=== PATIENT | male | born 1940 | race Caucasian/White ===

== ENCOUNTER → 2023-04-12 07:47 | Outpatient (REF) | payer MEDICARE, SELFPAY ==
[2023-04-12 09:31] LABS: ALT (SGPT) 20 U/L (0-50); AST (SGOT) 23 U/L (17-59); Albumin 4.5 g/dl (3.5-5.0); Alkaline Phosphatase 68 U/L (38-126); Blood Urea Nitrogen 19 mg/dl (9-20); Calcium 9.5 mg/dl (8.4-10.2); Carbon Dioxide 25 mmol/L (22-30); Chloride 104 mmol/L (98-107); Glucose 168 mg/dl (70-99); HDL Cholesterol 61 mg/dl; Potassium 4.3 mmol/L (3.5-5.1); Sodium 136 mmol/L (135-145); Total Bilirubin 0.8 mg/dl (0.2-1.3); Total Cholesterol 151 mg/dl (50-199); Total Protein 7.5 g/dl (6.3-8.2); eGFR > 60.00
[2023-04-12 09:38] LABS: Free T4 0.94 ng/dl (0.78-2.19)
[2023-04-12 09:41] LABS: LDL Cholesterol, Calculated 49 mg/dl; Triglyceride 205 mg/dl (10-149); Very Low Density Lipoprotein 41 mg/dl (0-30)
[2023-04-12 09:47] LABS: Free T3 3.28 pg/ml (2.77-5.27)
[2023-04-12 09:52] LABS: TSH 3.08 uIU/ml (0.47-4.68)
[2023-04-12 09:53] LABS: Microalbumin, Random Urine < 0.6 mg/dl (0.6-1.7)
[2023-04-12 13:35] LABS: Glycohemoglobin (HgbA1c) 7.5 % (4.0-5.6)
[2023-04-14 00:17] LABS: Thyroid Peroxidase Ab (TPO) 1.1 IU/mL (0.0-9.0)
[2023-04-14 17:04] LABS: Total T3 (Sendout) 78 ng/dL (80-200)
== END ==
LOC: REG 07:47
PROVIDERS: ATTENDING PHYSICIAN Internal Medicine Endocrinology, Diabetes & Metabolism
DX: E03.9 Hypothyroidism, unspecified (principal); R80.9 Proteinuria, unspecified; E11.65 Type 2 diabetes mellitus with hyperglycemia; E78.5 Hyperlipidemia, unspecified; R53.83 Other fatigue
CPT/HCPCS: 36415; 80053; 80061; 82043; 82570; 83036; 84439; 84443; 84480; 84481; 86376

== ENCOUNTER → 2023-05-25 13:53 | Outpatient (REF) | payer MEDICARE, SELFPAY ==
[2023-05-25 15:50] LABS: Blood Urea Nitrogen 12 mg/dl (9-20); Calcium 9.6 mg/dl (8.4-10.2); Carbon Dioxide 25 mmol/L (22-30); Chloride 102 mmol/L (98-107); Glucose 223 mg/dl (70-99); Potassium 3.9 mmol/L (3.5-5.1); Sodium 137 mmol/L (135-145); eGFR > 60.00
== END ==
LOC: REG 13:53
PROVIDERS: ATTENDING PHYSICIAN Internal Medicine Hematology & Oncology
DX: I82.503 Chronic embolism and thrombosis of unspecified deep veins of lower extremity, bilateral (principal); I26.99 Other pulmonary embolism without acute cor pulmonale
CPT/HCPCS: 36415; 80048

== ENCOUNTER → 2023-06-18 07:43 | Outpatient (REF) | payer MEDICARE, SELFPAY ==
[2023-06-18 08:56] LABS: % Basophils 0.7 % (0-2); % Eosinophils 5.3 % (0-6); % Immature Granulocytes 0.2 % (0-0.5); % Lymphocytes 22.8 % (20.5-51.1); % Monocytes 10.3 % (1.7-9.3); % Neutrophils 60.7 % (42.2-75.2); Absolute Eosinophils 0.3 10^3/uL (0-0.7); Absolute Lymphocytes 1.3 10^3/uL (1.2-3.4); Absolute Monocytes 0.6 10^3/uL (0.1-0.6); Absolute Neutrophils 3.4 10^3/uL (1.4-6.5); Hematocrit 39.8 % (39.0-52.0); Hemoglobin 13.3 g/dL (13.0-18.0); Mean Corp Hgb Conc. 33.4 g/dL (33.0-37.0); Mean Corpuscular Hgb 29.9 pg (27.0-31.0); Mean Corpuscular Volume 89.4 fL (80.0-94.0); Mean Platelet Volume 10.3 fL (7.4-10.4); Nucleated Red Blood Cells % 0 % (-); Platelet Count 187 10^3/uL (130-400); Red Blood Cell Count 4.45 10^6/uL (4.70-6.10); Red Cell Dist. Width 13.3 % (11.5-14.5); White Blood Cell Count 5.6 10^3/uL (4.8-10.8)
[2023-06-18 09:42] LABS: D-Dimer 0.44 ug/mlFEU (0.00-0.50)
[2023-06-18 09:59] LABS: Iron 107 ug/dl (49-181)
[2023-06-18 10:10] LABS: Percent Saturation 26 % (20-50); Total Iron Binding Capacity 403 ug/dl (261-462)
[2023-06-18 10:27] LABS: Ferritin 45.9 ng/ml (17.9-464.0)
== END ==
LOC: REG 07:43
PROVIDERS: ATTENDING PHYSICIAN Internal Medicine Hematology & Oncology; FAMILY PHYSICIAN Family Medicine
DX: I82.503 Chronic embolism and thrombosis of unspecified deep veins of lower extremity, bilateral (principal); I26.99 Other pulmonary embolism without acute cor pulmonale; D50.9 Iron deficiency anemia, unspecified
CPT/HCPCS: 36415; 82728; 83540; 83550; 85025; 85379

== ENCOUNTER → 2023-07-10 07:57 | Outpatient (REF) | payer MEDICARE, SELFPAY ==
[2023-07-10 08:44] LABS: Glycohemoglobin (HgbA1c) 8.7 % (4.0-5.6)
[2023-07-10 08:59] LABS: ALT (SGPT) 19 U/L (0-50); AST (SGOT) 21 U/L (17-59); Albumin 4.7 g/dl (3.5-5.0); Alkaline Phosphatase 71 U/L (38-126); Blood Urea Nitrogen 15 mg/dl (9-20); Calcium 9.7 mg/dl (8.4-10.2); Carbon Dioxide 26 mmol/L (22-30); Chloride 103 mmol/L (98-107); Glucose 190 mg/dl (70-99); HDL Cholesterol 62 mg/dl; LDL Cholesterol, Calculated 39 mg/dl; Potassium 4.3 mmol/L (3.5-5.1); Sodium 137 mmol/L (135-145); Total Bilirubin 1.1 mg/dl (0.2-1.3); Total Cholesterol 143 mg/dl (50-199); Total Protein 7.8 g/dl (6.3-8.2); Triglyceride 212 mg/dl (10-149); Very Low Density Lipoprotein 42 mg/dl (0-30); eGFR > 60.00
[2023-07-10 09:01] LABS: Microalbumin, Random Urine 0.9 mg/dl (0.6-1.7)
[2023-07-10 09:17] LABS: Free T3 2.86 pg/ml (2.77-5.27); Free T4 1.03 ng/dl (0.78-2.19)
[2023-07-10 09:31] LABS: TSH 3.05 uIU/ml (0.47-4.68)
== END ==
LOC: REG 07:57
PROVIDERS: ATTENDING PHYSICIAN Internal Medicine Endocrinology, Diabetes & Metabolism
DX: E78.5 Hyperlipidemia, unspecified (principal); R53.83 Other fatigue; E11.65 Type 2 diabetes mellitus with hyperglycemia; R80.9 Proteinuria, unspecified; E03.9 Hypothyroidism, unspecified
CPT/HCPCS: 36415; 80053; 80061; 82043; 82570; 83036; 84439; 84443; 84481

== ENCOUNTER 2023-10-03 06:17 | Emergency (ER) | payer MEDICARE, SELFPAY ==
[2023-10-03 06:19] VITALS: BP 173/110
--- NOTE | 2023-10-03 07:30 | ED.GENMED ---
History of Present Illness
General
Chief Complaint: Bowel Problem
Source: patient
Time Seen by Provider: 10/03/23 07:09
History of Present Illness
History of Present Illness:
83-year-old male presents emergency department with constipation. Patient states he has not had a bowel movement in 4 days and he typically goes at least once a day. He has been taking MiraLAX at home and straining and got concerned tonight/this
morning when he noted blood, very small amount. He denies further bleeding. He denies history of hemorrhoids. He notes mild abdominal distention, but denies nausea, vomiting, fever, chills, chest pain, dyspnea, abdominal pain, or other complaints.
Past History
Past History
ED Past Medical History: CAD, HTN, Hypercholesterolemia and NIDDM
ED Past Surgical History: Cardiac, Orthopedic and Urological
Social History
Tobacco: Non-smoker
Alcohol: None
Drug: None
Personal:
Living: alone
Phy Exam
Physical Exam
Physical Exam:
GENERAL: Alert , in no apparent distress, very pleasant
EYE: pupils equal and reactive
NECK: Supple, no significant adenopathy.
ENT: o/p clr, mmm.
CARDIAC: Regular rate and rhythm .
LUNGS: Clear breath sounds bilaterally, no acute respiratory distress, no wheezes/rales/rhonchi
ABDOMEN: Soft, without focal tenderness, no r/g, no cvat
NEUROLOGICAL: Alert and oriented, no focal neuro deficits
SKIN: Warm and dry, skin intact.
MUSCULOSKELETAL: No edema, well perfused.
PSYCH: Normal and appropriate interaction.
Rectal no external hemorrhoids noted, no bleeding, no stool noted in vault, Carrie PCT present
Course
Orders/Labs/Results
Orders:
Orders
10/03/23 07:56
Phosphate Enema [Fleet Phosphate Enema-Adult] 135 ml RECTAL NOW STA
Vital Signs
Initial and Last Documented VS:
Initial Vital Signs
Pulse Resp BP Pulse Ox
77 18 173/110 97
10/03/23 06:19 10/03/23 06:19 10/03/23 06:19 10/03/23 06:19
Last Documented Vital Signs
Pulse Resp BP Pulse Ox
53 20 174/82 99
10/03/23 08:12 10/03/23 08:12 10/03/23 08:12 10/03/23 08:12
*Critical Care Note
Total Time (30-74mins, 75-104mins- exclusive of procedures): Not Applicable
Update Note
Update Note:
Patient presents to the Emergency Department with constipation____
Number and Complexity of Problems Addressed at the Encounter
� Chronic conditions affecting care:
� Acute Exacerbation and/or Progression of Chronic Illness:
� Differential Diagnosis includes:but not limited to functional constipation, obstruction, etc.
Amount and/or Complexity of Data to be Reviewed and Analyzed
� I performed an independent evaluation of and my interpretation is:
EKG:
CT:
Xrays:
Laboratory Studies:
Other:
� Review of other/old records reveals:
� Clinical information was obtained by an independent historian:
� Prescriptions/Medications Considered but not given:
� Further testing considered but not performed:
Risk of Complications and/or Morbidity or Mortality of Patient Management
� Social determinants of health affecting care:
� Discussion with other providers (PCP, Hospitalists, Consultants, etc):
� Escalation of care including admission/observation vs risk of discharge considered: 9:34 AM status post enema patient had a bowel movement here. He is very pleased that he is starting to pass stool. Denies new symptoms. No
abdominal pain, nausea, vomiting and abdomen remains soft and nontender. Discussed with patient importance of follow-up and reasons to return to the ER. If he continues to have constipation I did offer him recommendations for alternative by mouth
agents to be used with caution.
ED Attending Note
-
Portions of this chart may have been created with voice recognition software.� Occasional wrong word or��sound alike� substitutions may have occurred due to the inherent limitations of voice recognition software.
Discharge Plan
Departure
Patient Disposition: Home (Routine Discharge)
Date of Disposition: 10/03/23
Time of Disposition: :
Patient with high blood pressure during this ER visit?: Yes
Condition: Good
Discharge Problem:
Constipation
Instructions: Constipation, Adult (DC), BLOOD PRESSURE
Prescriptions:
No Action
aspirin 81 MG tablet,delayed release (DR/EC)
81 mg PO HS
spironolactone 25 MG tablet
12.5 mg PO DAILY
simvastatin 40 MG tablet
40 mg PO HS
cyanocobalamin (vitamin B-12) 1,000 MCG tablet
500 mcg PO DAILY
levothyroxine [Levoxyl] 50 MCG tablet
50 mcg PO DAILY
cholecalciferol (vitamin D3) [Vitamin D3] 25 mcg (1,000 unit) Tablet
25 mcg PO DAILY
Januvia 100 mg tablet
100 mg PO DAILY
metformin 500 MG tablet
1,000 mg PO BID
Rx Instructions:
HOLD post op- OK to resume on 02/20 in AM
prednisolone acetate 1 % Drops,Suspension
1 drp BOTH EYES .TAPER
Patient Comments:
12/21/2022: Pt does not know what eye drops he is supposed to be taking after Cataract surgery. Pt went to Dr Irving. Tried to called Dr Irving's office, office hours are [place]Fr [phone] and Tu [phone]
Rx Instructions:
Per manager organizational dr: TID x 1 week, BID x 1 week. Unknown schedule given at surgery
diclofenac sodium 0.1 % Drops
1 drp BOTH EYES BID
Rx Instructions:
x 2 weeks
oxycodone 5 mg tablet
5 mg PO TID PRN (Reason: Pain) Qty: 10 0RF
Referrals:
Sigifredo Her MD [Family Provider] -
Torrie Castaneda, DO [Active] - Next open appointment
Activity Restrictions/Additional Instructions:
IF YOU STILL FEEL CONSTIPATED LATER TODAY, YOU MAY CONSIDER TAKING MAGNESIUM CITRATE (SOLD OVER THE COUNTER). TAKE NO MORE THAN 150 ML (1/2 OF A BOTTLE) WITH 8 OUNCES OF WATER. YOU CAN EXPECT A BOWEL MOVEMENT IN 6-12 HOURS AFTER TAKING. IF YOU
DEVELOP BLEEDING, FEVER, VOMITING, ABDOMINAL PAIN, OR OTHER WORRISOME SIGNS, GO TO THE ER IMMEDIATELY!
Interventions
Interventions:
*Risk Screen - Suicide Last Done: 10/03/23 08:05
*General Assessment Last Done: 10/03/23 08:05
*Neglect/Abuse Screening Last Done: 10/03/23 08:05
*ED COVID-19 Vaccine History Last Done: 10/03/23 08:05
Discharge Date and Time
Print Language: GREEK
[2023-10-03 08:12] VITALS: BP 174/82
[2023-10-03] MEDS: FLEET PHOSPHATE ENEMA-ADULT 135 ML RECTAL (08:30)
== END 2023-10-03 09:40 | disposition home or self-care (01) ==
LOC: EMR 06:17
PROVIDERS: EMERGENCY PHYSICIAN Emergency Medicine; FAMILY PHYSICIAN Family Medicine
DX: K59.00 Constipation, unspecified (principal); I10 Essential (primary) hypertension
CPT/HCPCS: 99283

== ENCOUNTER → 2023-10-04 12:00 | Outpatient (REF) | payer MEDICARE, SELFPAY ==
[2023-10-04 13:48] LABS: ALT (SGPT) 16 U/L (0-50); AST (SGOT) 22 U/L (17-59); Albumin 4.5 g/dl (3.5-5.0); Alkaline Phosphatase 68 U/L (38-126); Blood Urea Nitrogen 9 mg/dl (9-20); Calcium 9.8 mg/dl (8.4-10.2); Carbon Dioxide 24 mmol/L (22-30); Chloride 101 mmol/L (98-107); Glucose 280 mg/dl (70-99); HDL Cholesterol 55 mg/dl; LDL Cholesterol, Calculated 41 mg/dl; Potassium 4.4 mmol/L (3.5-5.1); Sodium 135 mmol/L (135-145); Total Bilirubin 0.7 mg/dl (0.2-1.3); Total Cholesterol 132 mg/dl (50-199); Total Protein 7.2 g/dl (6.3-8.2); Triglyceride 184 mg/dl (10-149); Very Low Density Lipoprotein 36 mg/dl (0-30); eGFR > 60.00
[2023-10-04 13:55] LABS: Microalbumin, Random Urine < 0.6 mg/dl (0.6-1.7)
[2023-10-04 14:02] LABS: Free T4 1.19 ng/dl (0.78-2.19); Vitamin D, 25-OH*** 39.8 ng/mL (30-80)
[2023-10-04 14:15] LABS: TSH 1.99 uIU/ml (0.47-4.68)
== END ==
LOC: REG 12:00
PROVIDERS: ATTENDING PHYSICIAN Internal Medicine Endocrinology, Diabetes & Metabolism; FAMILY PHYSICIAN Family Medicine
DX: E78.5 Hyperlipidemia, unspecified (principal); R53.83 Other fatigue; E11.65 Type 2 diabetes mellitus with hyperglycemia; R80.9 Proteinuria, unspecified; E55.9 Vitamin D deficiency, unspecified; E03.9 Hypothyroidism, unspecified
CPT/HCPCS: 36415; 80053; 80061; 82043; 82306; 82570; 83036; 84439; 84443; 84481

== ENCOUNTER → 2023-11-13 07:25 | Outpatient (REF) | payer MEDICARE, SELFPAY ==
[2023-11-13 08:17] LABS: % Basophils 0.7 % (0-2); % Eosinophils 4.7 % (0-6); % Immature Granulocytes 0.2 % (0-0.5); % Lymphocytes 24.5 % (20.5-51.1); % Monocytes 12.2 % (1.7-9.3); % Neutrophils 57.7 % (42.2-75.2); Absolute Eosinophils 0.3 10^3/uL (0-0.7); Absolute Lymphocytes 1.4 10^3/uL (1.2-3.4); Absolute Monocytes 0.7 10^3/uL (0.1-0.6); Absolute Neutrophils 3.2 10^3/uL (1.4-6.5); Hematocrit 37.4 % (39.0-52.0); Hemoglobin 13.6 g/dL (13.0-18.0); Mean Corp Hgb Conc. 36.4 g/dL (33.0-37.0); Mean Corpuscular Hgb 32.6 pg (27.0-31.0); Mean Corpuscular Volume 89.7 fL (80.0-94.0); Mean Platelet Volume 10.1 fL (7.4-10.4); Nucleated Red Blood Cells % 0 % (-); Platelet Count 168 10^3/uL (130-400); Red Blood Cell Count 4.17 10^6/uL (4.70-6.10); Red Cell Dist. Width 12.5 % (11.5-14.5); White Blood Cell Count 5.6 10^3/uL (4.8-10.8)
[2023-11-13 09:04] LABS: CEA 5.43 ng/ml
== END ==
LOC: REG 07:25
PROVIDERS: ATTENDING PHYSICIAN Internal Medicine Hematology & Oncology; FAMILY PHYSICIAN Family Medicine
DX: I82.503 Chronic embolism and thrombosis of unspecified deep veins of lower extremity, bilateral (principal); I26.99 Other pulmonary embolism without acute cor pulmonale; K76.89 Other specified diseases of liver
CPT/HCPCS: 36415; 82378; 85025

== ENCOUNTER → 2024-01-07 07:44 | Outpatient (REF) | payer MEDICARE, SELFPAY ==
[2024-01-07 09:22] LABS: ALT (SGPT) 17 U/L (0-50); AST (SGOT) 20 U/L (17-59); Albumin 4.4 g/dl (3.5-5.0); Alkaline Phosphatase 74 U/L (38-126); Blood Urea Nitrogen 16 mg/dl (9-20); Calcium 9.7 mg/dl (8.4-10.2); Carbon Dioxide 25 mmol/L (22-30); Chloride 101 mmol/L (98-107); Glucose 244 mg/dl (70-99); HDL Cholesterol 55 mg/dl; LDL Cholesterol, Calculated 40 mg/dl; Potassium 5.3 mmol/L (3.5-5.1); Sodium 140 mmol/L (135-145); Total Bilirubin 0.8 mg/dl (0.2-1.3); Total Cholesterol 125 mg/dl (50-199); Total Protein 7.3 g/dl (6.3-8.2); Triglyceride 154 mg/dl (10-149); Very Low Density Lipoprotein 30 mg/dl (0-30); eGFR > 60.00
[2024-01-07 09:31] LABS: Glycohemoglobin (HgbA1c) 9.3 % (4.0-5.6)
[2024-01-07 09:37] LABS: Free T3 3.13 pg/ml (2.77-5.27); Vitamin D, 25-OH*** 51.9 ng/mL (30-80)
[2024-01-07 09:42] LABS: Microalbumin, Random Urine 2.5 mg/dl (0.6-1.7); Microalbumin/creatinine Ratio 17.1 mg/g
[2024-01-07 09:50] LABS: TSH 2.26 uIU/ml (0.47-4.68)
[2024-01-08 15:49] LABS: Thyroid Peroxidase Ab (TPO) 1.2 IU/mL (0.0-9.0)
[2024-01-09 02:47] LABS: C-Peptide 1.9 ng/mL (0.5-3.3)
== END ==
LOC: REG 07:44
PROVIDERS: ATTENDING PHYSICIAN Internal Medicine Endocrinology, Diabetes & Metabolism; FAMILY PHYSICIAN Family Medicine
DX: E55.9 Vitamin D deficiency, unspecified (principal); E03.9 Hypothyroidism, unspecified; R80.9 Proteinuria, unspecified; E11.65 Type 2 diabetes mellitus with hyperglycemia; E78.5 Hyperlipidemia, unspecified; R53.83 Other fatigue
CPT/HCPCS: 36415; 80053; 80061; 82043; 82306; 82570; 83036; 84439; 84443; 84481; 84681; 86376

== ENCOUNTER → 2024-02-06 08:10 | Outpatient (REF) | payer MEDICARE, SELFPAY ==
[2024-02-06 11:31] LABS: ALT (SGPT) 17 U/L (0-50); AST (SGOT) 22 U/L (17-59); Albumin 4.8 g/dl (3.5-5.0); Alkaline Phosphatase 54 U/L (38-126); Blood Urea Nitrogen 18 mg/dl (9-20); Calcium 9.6 mg/dl (8.4-10.2); Carbon Dioxide 27 mmol/L (22-30); Chloride 102 mmol/L (98-107); Glucose 184 mg/dl (70-99); HDL Cholesterol 65 mg/dl; LDL Cholesterol, Calculated 46 mg/dl; Potassium 4.4 mmol/L (3.5-5.1); Sodium 143 mmol/L (135-145); Total Bilirubin 0.8 mg/dl (0.2-1.3); Total Cholesterol 148 mg/dl (50-199); Total Protein 7.8 g/dl (6.3-8.2); Triglyceride 189 mg/dl (10-149); Very Low Density Lipoprotein 37 mg/dl (0-30); eGFR > 60.00
[2024-02-06 11:47] LABS: Free T3 2.95 pg/ml (2.77-5.27); Free T4 0.92 ng/dl (0.78-2.19)
[2024-02-06 11:48] LABS: Microalbumin, Random Urine 0.6 mg/dl (0.6-1.7); Microalbumin/creatinine Ratio 5.7 mg/g
[2024-02-06 11:56] LABS: Glycohemoglobin (HgbA1c) 8.8 % (4.0-5.6)
[2024-02-06 12:01] LABS: TSH 2.41 uIU/ml (0.47-4.68)
== END ==
LOC: REG 08:10
PROVIDERS: ATTENDING PHYSICIAN Internal Medicine Endocrinology, Diabetes & Metabolism
DX: E03.9 Hypothyroidism, unspecified (principal); R80.9 Proteinuria, unspecified; E11.65 Type 2 diabetes mellitus with hyperglycemia; E78.5 Hyperlipidemia, unspecified; K74.01 Hepatic fibrosis, early fibrosis; R53.83 Other fatigue
CPT/HCPCS: 36415; 80053; 80061; 82043; 82570; 83036; 84439; 84443; 84481

== ENCOUNTER → 2024-03-18 07:12 | Outpatient (REF) | payer MEDICARE, SELFPAY ==
[2024-03-18 08:11] LABS: % Basophils 0.8 % (0-2); % Eosinophils 5.4 % (0-6); % Immature Granulocytes 0.3 % (0-0.5); % Lymphocytes 24.1 % (20.5-51.1); % Monocytes 10.9 % (1.7-9.3); % Neutrophils 58.5 % (42.2-75.2); Absolute Basophils 0.1 10^3/uL (0-0.2); Absolute Eosinophils 0.3 10^3/uL (0-0.7); Absolute Lymphocytes 1.5 10^3/uL (1.2-3.4); Absolute Monocytes 0.7 10^3/uL (0.1-0.6); Absolute Neutrophils 3.6 10^3/uL (1.4-6.5); Hematocrit 38.1 % (39.0-52.0); Hemoglobin 13.3 g/dL (13.0-18.0); Mean Corp Hgb Conc. 34.9 g/dL (33.0-37.0); Mean Corpuscular Hgb 31.7 pg (27.0-31.0); Mean Corpuscular Volume 90.7 fL (80.0-94.0); Mean Platelet Volume 10.1 fL (7.4-10.4); Nucleated Red Blood Cells % 0 % (-); Platelet Count 171 10^3/uL (130-400); Red Cell Dist. Width 12.3 % (11.5-14.5); White Blood Cell Count 6.1 10^3/uL (4.8-10.8)
== END ==
LOC: REG 07:12
PROVIDERS: ATTENDING PHYSICIAN Nurse Practitioner Primary Care
DX: I82.503 Chronic embolism and thrombosis of unspecified deep veins of lower extremity, bilateral (principal); I26.99 Other pulmonary embolism without acute cor pulmonale; K76.89 Other specified diseases of liver
CPT/HCPCS: 36415; 85025

== ENCOUNTER → 2024-05-06 07:36 | Outpatient (REF) | payer MEDICARE, SELFPAY ==
[2024-05-06 08:59] LABS: ALT (SGPT) 16 U/L (0-50); AST (SGOT) 20 U/L (17-59); Albumin 4.7 g/dl (3.5-5.0); Alkaline Phosphatase 65 U/L (38-126); Blood Urea Nitrogen 19 mg/dl (9-20); Calcium 10.2 mg/dl (8.4-10.2); Carbon Dioxide 24 mmol/L (22-30); Chloride 104 mmol/L (98-107); Glucose 180 mg/dl (70-99); HDL Cholesterol 64 mg/dl; LDL Cholesterol, Calculated 60 mg/dl; Potassium 4.9 mmol/L (3.5-5.1); Sodium 138 mmol/L (135-145); Total Bilirubin 0.9 mg/dl (0.2-1.3); Total Cholesterol 149 mg/dl (50-199); Total Protein 7.7 g/dl (6.3-8.2); Triglyceride 128 mg/dl (10-149); Very Low Density Lipoprotein 25 mg/dl (0-30); eGFR > 60.00
[2024-05-06 09:14] LABS: Free T4 1.15 ng/dl (0.78-2.19); Vitamin D, 25-OH*** 49.1 ng/mL (30-80)
[2024-05-06 09:16] LABS: Free T3 2.92 pg/ml (2.77-5.27)
[2024-05-06 09:17] LABS: Glycohemoglobin (HgbA1c) 8.1 % (4.0-5.6)
[2024-05-06 09:27] LABS: TSH 3.78 uIU/ml (0.47-4.68)
[2024-05-06 10:01] LABS: Microalbumin, Random Urine 0.7 mg/dl (0.6-1.7); Microalbumin/creatinine Ratio 4.1 mg/g
[2024-05-08 02:25] LABS: C-Peptide 2.2 ng/mL (0.5-3.3)
[2024-05-08 08:07] LABS: Total T3 (Sendout) 64 ng/dL (80-200)
== END ==
LOC: REG 07:36
PROVIDERS: ATTENDING PHYSICIAN Internal Medicine Endocrinology, Diabetes & Metabolism; FAMILY PHYSICIAN Family Medicine
DX: E55.9 Vitamin D deficiency, unspecified (principal); E03.9 Hypothyroidism, unspecified; R80.9 Proteinuria, unspecified; E11.65 Type 2 diabetes mellitus with hyperglycemia; E78.5 Hyperlipidemia, unspecified; R74.01 Elevation of levels of liver transaminase levels; R53.83 Other fatigue; R79.89 Other specified abnormal findings of blood chemistry
CPT/HCPCS: 36415; 80053; 80061; 82043; 82306; 82570; 83036; 84439; 84443; 84480; 84481; 84681

== ENCOUNTER → 2024-06-26 07:07 | Outpatient (REF) | payer MEDICARE, SELFPAY ==
[2024-06-26 09:51] LABS: Total Thyroxine 5.96 ug/dl (5.5-11.0)
[2024-06-26 10:05] LABS: TSH 2.72 uIU/ml (0.47-4.68)
[2024-06-26 10:41] LABS: Folate 7.4 ng/ml (2.76-20); Vitamin B12 631 pg/ml (239-931)
== END ==
LOC: REG 07:07
PROVIDERS: ATTENDING PHYSICIAN Specialist; FAMILY PHYSICIAN Family Medicine
DX: I10 Essential (primary) hypertension (principal); E78.2 Mixed hyperlipidemia; Z95.0 Presence of cardiac pacemaker; I25.10 Atherosclerotic heart disease of native coronary artery without angina pectoris; Z95.5 Presence of coronary angioplasty implant and graft; C61 Malignant neoplasm of prostate; E11.40 Type 2 diabetes mellitus with diabetic neuropathy, unspecified; E03.9 Hypothyroidism, unspecified; D51.9 Vitamin B12 deficiency anemia, unspecified; G30.1 Alzheimer's disease with late onset
CPT/HCPCS: 36415; 82607; 82746; 84436; 84443

== ENCOUNTER → 2024-06-30 14:07 | Outpatient (REF) | payer MEDICARE, SELFPAY | LOC: HWRAD 14:07 | PROVIDERS: ATTENDING PHYSICIAN Specialist; FAMILY PHYSICIAN Family Medicine | DX: G30.1 Alzheimer's disease with late onset (principal) | CPT/HCPCS: 70450 ==

== ENCOUNTER → 2024-07-29 07:55 | Outpatient (REF) | payer MEDICARE, SELFPAY ==
[2024-07-29 09:43] LABS: ALT (SGPT) 15 U/L (0-50); AST (SGOT) 17 U/L (17-59); Albumin 4.8 g/dl (3.5-5.0); Alkaline Phosphatase 62 U/L (38-126); Blood Urea Nitrogen 15 mg/dl (9-20); Calcium 9.5 mg/dl (8.4-10.2); Carbon Dioxide 25 mmol/L (22-30); Chloride 107 mmol/L (98-107); Glucose 211 mg/dl (70-99); HDL Cholesterol 65 mg/dl; LDL Cholesterol, Calculated 33 mg/dl; Potassium 4.5 mmol/L (3.5-5.1); Sodium 142 mmol/L (135-145); Total Cholesterol 134 mg/dl (50-199); Total Protein 7.7 g/dl (6.3-8.2); Triglyceride 183 mg/dl (10-149); Very Low Density Lipoprotein 36 mg/dl (0-30); eGFR > 60.00
[2024-07-29 09:52] LABS: Free T4 1.03 ng/dl (0.78-2.19)
[2024-07-29 09:54] LABS: Free T3 2.94 pg/ml (2.77-5.27)
[2024-07-29 10:11] LABS: Microalbumin, Random Urine 1.8 mg/dl (0.6-1.7); Microalbumin/creatinine Ratio 7.9 mg/g
[2024-07-30 19:33] LABS: Thyroid Peroxidase Ab (TPO) 0.8 IU/mL (0.0-9.0)
== END ==
LOC: REG 07:55
PROVIDERS: ATTENDING PHYSICIAN Internal Medicine Endocrinology, Diabetes & Metabolism; FAMILY PHYSICIAN Family Medicine
DX: K74.01 Hepatic fibrosis, early fibrosis (principal); R53.83 Other fatigue; E03.9 Hypothyroidism, unspecified; R80.9 Proteinuria, unspecified; E11.65 Type 2 diabetes mellitus with hyperglycemia; E78.5 Hyperlipidemia, unspecified
CPT/HCPCS: 36415; 80053; 80061; 82043; 82306; 82570; 83036; 84439; 84481; 86376

== ENCOUNTER → 2024-09-03 09:49 | Outpatient (REF) | payer MEDICARE, SELFPAY | LOC: RCS 09:49 | PROVIDERS: ATTENDING PHYSICIAN Internal Medicine Cardiovascular Disease; FAMILY PHYSICIAN Family Medicine | DX: Z95.5 Presence of coronary angioplasty implant and graft (principal); I47.29 Other ventricular tachycardia | CPT/HCPCS: 93306 ==

== ENCOUNTER → 2024-09-12 07:22 | Outpatient (REF) | payer MEDICARE, SELFPAY | LOC: RCS 07:22 | PROVIDERS: ATTENDING PHYSICIAN Internal Medicine Cardiovascular Disease; FAMILY PHYSICIAN Family Medicine | DX: Z95.5 Presence of coronary angioplasty implant and graft (principal); I47.29 Other ventricular tachycardia | CPT/HCPCS: 78452; 93017; A9500; J2785 ==

== ENCOUNTER → 2024-11-04 06:52 | Outpatient (REF) | payer MEDICARE, SELFPAY ==
[2024-11-04 08:36] LABS: Microalbumin, Random Urine 1.3 mg/dl (0.6-1.7)
[2024-11-04 08:38] LABS: Glycohemoglobin (HgbA1c) 8.2 % (4.0-5.6)
[2024-11-04 08:54] LABS: Microalb - Urine Creatinine 163.000 mg/dl
[2024-11-04 08:58] LABS: ALT (SGPT) 19 U/L (0-50); AST (SGOT) 22 U/L (17-59); Albumin 4.6 g/dl (3.5-5.0); Alkaline Phosphatase 54 U/L (38-126); Blood Urea Nitrogen 19 mg/dl (9-20); Calcium 9.9 mg/dl (8.4-10.2); Carbon Dioxide 23 mmol/L (22-30); Chloride 106 mmol/L (98-107); Glucose 195 mg/dl (70-99); HDL Cholesterol 62 mg/dl; LDL Cholesterol, Calculated 41 mg/dl; Potassium 4.5 mmol/L (3.5-5.1); Sodium 138 mmol/L (135-145); Total Protein 7.5 g/dl (6.3-8.2); Very Low Density Lipoprotein 31 mg/dl (0-30); eGFR > 60.00
[2024-11-04 09:08] LABS: Free T3 3.37 pg/ml (2.77-5.27); Vitamin D, 25-OH*** 48.3 ng/mL (30-80)
[2024-11-04 09:20] LABS: TSH 2.83 uIU/ml (0.47-4.68)
[2024-11-05 12:33] LABS: tTG IgA Antibody 4.9 EU/ml (0-19); tTG IgG Antibody 14.3 EU/ml (0-19)
== END ==
LOC: REG 06:52
PROVIDERS: ATTENDING PHYSICIAN Internal Medicine Endocrinology, Diabetes & Metabolism
DX: K90.0 Celiac disease (principal); E03.9 Hypothyroidism, unspecified; E55.9 Vitamin D deficiency, unspecified; R80.9 Proteinuria, unspecified; E11.65 Type 2 diabetes mellitus with hyperglycemia; E78.5 Hyperlipidemia, unspecified; E34.9 Endocrine disorder, unspecified; R74.01 Elevation of levels of liver transaminase levels; R53.83 Other fatigue
CPT/HCPCS: 36415; 80053; 80061; 82043; 82306; 82570; 82627; 82784; 83036; 83516; 84439; 84443; 84481; 86231

== ENCOUNTER → 2025-02-05 08:10 | Outpatient (REF) | payer MEDICARE, SELFPAY ==
[2025-02-05 10:19] LABS: Glycohemoglobin (HgbA1c) 8.4 % (4.0-5.9)
[2025-02-05 10:26] LABS: Microalbumin, Random Urine 1.4 mg/dl (0.6-1.7)
[2025-02-05 10:30] LABS: Free T3 3.29 pg/ml (2.77-5.27); Vitamin D, 25-OH*** 45.1 ng/mL (30-80)
[2025-02-05 10:41] LABS: ALT (SGPT) 15 U/L (0-50); AST (SGOT) 20 U/L (17-59); Albumin 4.6 g/dl (3.5-5.0); Alkaline Phosphatase 59 U/L (38-126); Blood Urea Nitrogen 13 mg/dl (9-20); Calcium 9.4 mg/dl (8.4-10.2); Carbon Dioxide 28 mmol/L (22-30); Chloride 103 mmol/L (98-107); Glucose 187 mg/dl (70-99); HDL Cholesterol 61 mg/dl; LDL Cholesterol, Calculated 43 mg/dl; Potassium 4.4 mmol/L (3.5-5.1); Sodium 137 mmol/L (135-145); Total Protein 7.7 g/dl (6.3-8.2); Very Low Density Lipoprotein 31 mg/dl (0-30); eGFR > 60.00
[2025-02-05 10:43] LABS: TSH 3.81 uIU/ml (0.47-4.68)
== END ==
LOC: REG 08:10
PROVIDERS: ATTENDING PHYSICIAN Internal Medicine Endocrinology, Diabetes & Metabolism; FAMILY PHYSICIAN Family Medicine
DX: E03.9 Hypothyroidism, unspecified (principal); E55.9 Vitamin D deficiency, unspecified; R80.9 Proteinuria, unspecified; E11.65 Type 2 diabetes mellitus with hyperglycemia; E78.5 Hyperlipidemia, unspecified; E34.9 Endocrine disorder, unspecified; R74.01 Elevation of levels of liver transaminase levels; R53.83 Other fatigue
CPT/HCPCS: 36415; 80053; 80061; 82043; 82306; 82570; 82626; 82627; 83036; 84439; 84443; 84481; 86376